=== PATIENT | male | born 1970 | race Caucasian/White ===

== ENCOUNTER → 2020-01-15 | Outpatient (CLI) | payer BC | END | disposition home or self-care (01) | LOC: CVU 13:52 | PROVIDERS: ATTEND Internal Medicine Cardiovascular Disease | DX: I08.8 Other rheumatic multiple valve diseases (principal); I49.9 Cardiac arrhythmia, unspecified; R55 Syncope and collapse | CPT/HCPCS: 93306 ==

== ENCOUNTER 2020-03-18 11:22 | Day surgery (SDC) | payer BC ==
[~2020-03-18] VITALS: Ht 185.4 cm; Wt 125.0 kg
[2020-03-18] MEDS ORDERED: SODIUM CHLORIDE 0.9% 1,000 ML IV SCH (11:44)
[2020-03-18 11:53] VITALS: BP 165/98
[2020-03-18] MEDS ORDERED: AMLO-150 PO (11:59)
[2020-03-18] MEDS ORDERED: METO25TA91 PO (11:59)
[2020-03-18] MEDS ORDERED: PLEASE ENTER HEIGHT AND WEIGHT MC SCH (12:00)
[2020-03-18 12:28] LABS: BASOPHILS % (AUTO) 0 % (0-1); EOSINOPHILS % (AUTO) 0 % (1-7); LYMPHOCYTES # (AUTO) 1.58 x10^3/uL (1-3.4); LYMPHOCYTES % (AUTO) 27 % (22-44); MD NO; MEAN CORPUSCULAR HEMOGLOBIN 32.5 pg (27.5-34.5); MEAN CORPUSCULAR HGB CONC 34.4 g/dL (33.2-36.2); MEAN CORPUSCULAR VOLUME 94.6 fL (81-97); MEAN PLATELET VOLUME 7.4 fL (7.4-10.4); MONOCYTES # (AUTO) 0.58 x10^3/uL (0.2-0.8); MONOCYTES % (AUTO) 10 % (2-9); NEUTROPHILS % (AUTO) 62 % (42-75); PLATELET COUNT 217 x10^3/uL (130-400); RED CELL DISTRIBUTION WIDTH 14.9 % (9.4-14.8)
[2020-03-18 12:38] LABS: ANION GAP 5 mmol/L (5-15); CALCIUM 8.6 mg/dL (8.5-10.1); CHLORIDE 107 mmol/L (98-107); INTERNATIONAL NORMALIZED RATIO 1.02 (0.93-1.1); PROTHROMBIN TIME 10.8 Seconds (9.6-11.5)
[2020-03-18 12:39] LABS: CREATININE 0.94 mg/dL (0.7-1.3)
[2020-03-18] MEDS ORDERED: ADENOSINE 6 MG/2 ML ONE (16:30)
[2020-03-18] MEDS ORDERED: FENTANYL PF 100 MCG/2ML ONE (16:30)
[2020-03-18] MEDS ORDERED: MIDAZOLAM 1 MG/ML, 5ML ONE (16:30)
[2020-03-18] MEDS ORDERED: LIDOCAINE 2%, 20ML ONE (16:31)
[2020-03-18] MEDS ORDERED: METOPROLOL 1 MG/ML, 5ML ONE (17:50)
[2020-03-18] MEDS ORDERED: FLECAINIDE 100MG TABLET ONE (18:13)
[2020-03-18] MEDS ORDERED: FLECAINIDE 100MG TABLET PO SCH (18:30)
[2020-03-18] MEDS ORDERED: FLECAINIDE 100MG TABLET PO ONE (19:00)
[2020-03-18] MEDS ORDERED: FLEC100T PO (20:04)
[2020-03-18 20:49] VITALS: BP 141/92
== END 2020-03-18 21:55 | disposition home or self-care (01) ==
LOC: CACL 11:22 → 5SO 18:11 → CACL 21:55
PROVIDERS: ATTEND Internal Medicine Cardiovascular Disease
DX: I49.3 Ventricular premature depolarization (principal); I10 Essential (primary) hypertension; I49.9 Cardiac arrhythmia, unspecified; Z79.01 Long term (current) use of anticoagulants; Z79.899 Other long term (current) drug therapy; Z88.2 Allergy status to sulfonamides
CPT/HCPCS: 36415; 71046; 80048; 85025; 85610; 85730; 93613; 93620; C1894; C2630; J2250; J3010; G0378; J0153